=== PATIENT | female | born 1990 | race African-American/Black ===

== ENCOUNTER 2018-05-15 12:49 | Emergency (ER) | payer OTHER ==
[~2018-05-15] VITALS: Ht 170.2 cm; Wt 86.2 kg
--- NOTE | 2018-05-15 12:50 | NUR ---
PT BIBA BLS TO BED 5
[2018-05-15 13:08] VITALS: BP 114/76
--- NOTE | 2018-05-15 13:08 | NUR ---
PT BIBA PER EMS THEY WERE CALLED TO A STORE FRONT IN [place] AT 1207 AFTER A DISC JOCKEY CALLED 911 BECAUSE THE PT WAS "STRUGGLING". PT COMPLAINS OF R FOOT PAIN AND BEING "ALMOST MOLESTED" LAST NIGHT BY STAFF IN THE [facility] SHE RESIDES AT. NOT SUICIDCAL NOT HOMICIDAL. STATES SHE HASN'T TAKEN HER DEPRESSION MEDS IN 6 DAYS. HX: DEPRESSION AND ANXIETY MEDS: 2 BLUE PILLS AND RISPERADOL
--- NOTE | 2018-05-15 13:31 | NUR ---
ZEN PIERRE CALLED SPOKE WITH HANSEL, AFTER PT REPORT BEIONG ALMOST MOLESTED LAST NIGHT AT HALFWAY BY STAFF MEMBERS. SAYS THAT AT 3AM THE NEIGHBOR SAW AND CALLED IT IN, AND POLICE BROKE DOWN THE DOOR AND STOPPED IT. STATES ALL THAT HAPPENED WAS THEY HURT HER R FOOT, BRUISING IS PRESENT ON TOP OF FOOT. ZEN PIERRE SENDING AN OFFICER AT THIS TIME.
[2018-05-15 13:46] LABS: BASOPHILS % (AUTO) 0.5 % (0.0-2.0); EOSINOPHILS # (AUTO) 0.1 K/uL (0-0.4); EOSINOPHILS % (AUTO) 1.2 % (0.0-4.0); LYMPHOCYTES # (AUTO) 2.7 K/uL (2.5-16.5); LYMPHOCYTES % (AUTO) 27.4 % (20.5-51.1); MEAN CORPUSCULAR HEMOGLOBIN 28 pg (27-31); MEAN CORPUSCULAR HGB CONC 33 g/dL (33-37); MEAN CORPUSCULAR VOLUME 87.3 fL (80-94); MONOCYTES # (AUTO) 0.9 K/uL (0.8-1.0); MONOCYTES % (AUTO) 9.4 % (1.7-9.3); NEUTROPHILS # (AUTO) 6.2 K/uL (1.8-7.7); NEUTROPHILS % (AUTO) 61.5 % (42.2-75.2); PLATELET COUNT (AUTO) 222 K/uL (140-450); RED BLOOD CELL COUNT(AUTO) 4.58 MIL/uL (4.20-5.40)
--- NOTE | 2018-05-15 14:00 | NUR ---
TELEPSYCH ON AT BEDSIDE
--- NOTE | 2018-05-15 14:02 | NUR ---
PT SPEAKING WITH PHYSCOLOGIST ON COMPUTER.
[2018-05-15 14:12] LABS: ANION GAP 8.7 (8-16); CARBON DIOXIDE 26.2 mmol/L (21-32); CHLORIDE 111 mmol/L (98-107); CREATININE 0.9 mg/dL (0.6-1.3); GFR ARICAN-AMERICAN 97 mL/min (>90); GLUCOSE 105 mg/dL (74-106); POTASSIUM 3.9 mmol/L (3.5-5.1); SODIUM SERUM 142 mmol/L (136-145); UREA NITROGEN, BLOOD 12 mg/dL (7-18)
[2018-05-15 14:16] LABS: ACETAMINOPHEN < 0.5 ug/ml (10-30); ALBUMIN 3.6 g/dL (3.4-5.0); ASPARTATE AMINOTRANSFERASE 21 U/L (15-37); SALICYLATE < 2.8 mg/dL (2.8-20.0); TOTAL BILIRUBIN 0.1 mg/dL (0.0-1.0)
--- NOTE | 2018-05-15 14:35 | NUR ---
PD ZEN AT BEDSIDE. Addendum: 05/15/18 at 1510 by [email or web address] DC FROM [id number].
[2018-05-15 14:39] LABS: BARBITURATE, URINE NEG. ng/ml (NEG <=200); BENZODIAZEPINE, URINE NEG. ng/mL (NEG <=200); CANNABINOID, URINE NEG. ng/mL (NEG <=50); COCAINE, URINE NEG. ng/mL (NEG <=300); OPIATE, URINE NEG. ng/mL (NEG <=2000); PHENCYCLIDINE SCREEN,URINE NEG. ng/mL (NEG <=25)
[2018-05-15 15:06] LABS: APPEARANCE,URINE CLEAR (CLEAR); BILIRUBIN,URINE NEGATIVE (NEGATIVE); BLOOD, URINE NEGATIVE (NEGATIVE); COLOR,URINE YELLOW (YELLOW); LEUKOCYTE ESTERASE ,URINE NEGATIVE (NEGATIVE); NITRITE, URINE NEGATIVE (NEGATIVE); UGLUCOSE NEGATIVE (NEGATIVE)
--- NOTE | 2018-05-15 15:20 | NUR ---
PT STATED SHE CAN'T HELP HERSELF. STATES SHE HAS NO PLACE TO GO ADN NEEDS TO TALK TO A SW. INFORMED KAI THE EQUAL OPPORTUNITY DIRECTOR AND HE SPOKE WITH SW SHE TOLD US TO PROVIDE PATIENT WITH LIST OF SHELTERS. PT CLAIMS SHE CAN NOT READ. FORM WAS EXPLAINED TO HER. I CALLED A PENITENTIARY AND NO ONE ANSWERED. WILL PROVIDE PATIENT WITH PHONE TO CALL HER GRANDFATHER. WILL FOLLOW UP.
--- NOTE | 2018-05-15 15:32 | NUR ---
Patient being evaluated by dr hamilton at bedside.
--- NOTE | 2018-05-15 15:34 | NUR ---
DR DEVI AT BEDSIDE
[2018-05-15 15:38] LABS: RBC,URINE 0-5 (RARE) /HPF (0-5); WBC,URINE 0-5 (RARE) /HPF (0-5)
--- NOTE | 2018-05-15 15:42 | NUR ---
PT SPOKE WITH POWER TRANSFORMER REPAIR SUPERVISOR FROM [facility] [phone] TO STAY.
--- NOTE | 2018-05-15 15:50 | NUR ---
PATIENT SPEAKING WITH HER AUNT OLVIN AT #[phone]. WILL FOLLOW UP WITH PLAN
--- NOTE | 2018-05-15 15:53 | NUR ---
PT STATED"I'M NOT HUNGRY. I DON'T WANT FOOD".
--- NOTE | 2018-05-15 16:00 | NUR ---
SPOKE WITH PATIENTS AUNT AND HER HARBOUR MASTER. SUPERVIDOR STATED SHE NEEDED TO CALL AND MAKE AMMENDS BEFORE SHE COULD RETURN. TRIED CALLING THE NUMBER PROVIDED 3 TIMES WITH NO ANSWER. TRIED CALLING AISHAE THE TRANSFER TABLE OPERATOR TO EXPLAIN BUT SHE DID NOT ANSWER. PATIENT THEN STATED SHE DID NOT WANT TO RETURN TO THAT HOME. SHE WAS GIVEN A BUS PASS AND A LIST OF SHELTERS AND WALKED TO THE BUS STOP BY SECURITY.
[2018-05-15 16:23] VITALS: BP 133/68
== END 2018-05-15 15:53 | disposition home or self-care (01) ==
LOC: MED 12:49
DX: Z04.6 Encounter for general psychiatric examination, requested by authority (principal); F79 Unspecified intellectual disabilities
CPT/HCPCS: 36415; 80053; 80305; 81001; 81025; 85025; 87086; 99284; G0480; G0482